=== PATIENT | female | born 1945 | race Caucasian/White ===

== ENCOUNTER → 2016-07-12 | Outpatient (CLI) | payer MEDICARE ==
--- NOTE | 2016-07-12 10:50 | US ---
EXAMINATION TYPE: US carotid duplex BILAT DATE OF EXAM: 07/12/2016 9:36 AM COMPARISON: NONE CLINICAL HISTORY: 70-year-old female R42 DIZZINESS. TECHNIQUE: Carotid duplex ultrasound examination. Indirect Doppler criteria is utilized. FINDINGS: Dxil-po-rozarnay atherosclerotic change of the right greater than left bifurcations. EXAM MEASUREMENTS: RIGHT: Peak Systolic Velocity (PSV) cm/sec ----- Right CCA: 73.8 ----- Right ICA: 122.1 ----- Right ECA: 75.4 ICA/CCA ratio: 1.7 RIGHT: End Diastole cm/sec ----- Right CCA: 22.3 ----- Right ICA: 49.4 ----- Right ECA: 11.7 LEFT: Peak Systolic Velocity (PSV) cm/sec ----- Left CCA: 66.8 ----- Left ICA: 83.1 ----- Left ECA: 58.8 ICA/CCA ratio: 1.2 LEFT: End Diastole cm/sec ----- Left CCA: 19.7 ----- Left ICA: 35.8 ----- Left ECA: 9.0 VERTEBRALS (direction of flow): Right Vertebral: Antegrade Left Vertebral: Antegrade IMPRESSION: Right ICA velocities are borderline elevated this could reflect a mild, approaching a moderate ICA st enosis. No hemodynamically significant ICA stenosis seen on either side. Criteria for Assigning % of Stenosis / Diameter reduction (Estimation based on the indirect measurements of the internal carotid artery velocities (ICA PSV). 1. Normal (no stenosis)=ICA PSV < 125 cm/s: ratio < 2.0: ICA EDV<40 cm/s. 2. Less than 50% stenosis=ICA PSV < 125 cm/s: ratio < 2.0: ICA EDV<40 cm/s. 3. 50 to 69% stenosis=ICA PSV of 125 to 230 cm/s: ration 2.0 ? 4.0: ICA EDV 40-100 cm/s. 4. Greater than 70% stenosis to near occlusion= ICA PSV > 230 cm/s: ratio > 4.0: ICA EDV > 100 cm/s. 5. Near occlusion= ICA PSV velocities may be low or undetectable: variable ratio and ICA EDV. 6. Total occlusion=unable to detect flow.
--- NOTE | 2016-07-14 07:46 | MM ---
Reason for exam: screening (asymptomatic). Last mammogram was performed 6 years and 1 month ago. History: Patient is postmenopausal. Physical Findings: A clinical breast exam by your physician is recommended on an annual basis and results should be correlated with mammographic findings. MG 3D Screening Mammo W/Cad Bilateral CC and MLO view(s) were taken. Prior study comparison: June 08, 2010, mammogram, performed at [facility]. May 26, 2010, mammogram, performed at [facility]. January 31, 2009, mammogram, performed at [facility]. There are scattered fibroglandular densities. There is no discrete abnormality. No significant changes when compared with prior studies. ASSESSMENT: Benign, BI-RAD 2 RECOMMENDATION: Routine screening mammogram of both breasts in 1 year.
== END | disposition home or self-care (01) ==
LOC: RADMAMWWP 08:56
PROVIDERS: ATTEND Family Medicine
DX: R42 Dizziness and giddiness (principal); Z12.31 Encounter for screening mammogram for malignant neoplasm of breast
CPT/HCPCS: 77063; 93880; G0202

== ENCOUNTER → 2020-04-10 | Outpatient (CLI) | payer MEDICARE ==
--- NOTE | 2020-04-11 10:12 | MM ---
Reason for exam: screening (asymptomatic). Last mammogram was performed 3 years and 9 months ago. History: Patient is postmenopausal. Physical Findings: A clinical breast exam by your physician is recommended on an annual basis and results should be correlated with mammographic findings. MG 3D Screening Mammo W/Cad Bilateral CC and MLO view(s) were taken. Prior study comparison: July 12, 2016, bilateral MG 3d screening mammo w/cad. June 08, 2010, mammogram, performed at [facility]. The breast tissue is heterogeneously dense. This may lower the sensitivity of mammography. There are benign appearing round grouped calcifications in the right breast. There is chronic nodularity in the right breast. Asymmetric breast tissue left upper quadrant, stable. There is no discrete abnormality. ASSESSMENT: Benign, BI-RAD 2 RECOMMENDATION: Routine screening mammogram of both breasts in 1 year.
== END | disposition home or self-care (01) ==
LOC: RADMAMWWP 08:15
PROVIDERS: ATTEND Family Medicine
DX: Z12.31 Encounter for screening mammogram for malignant neoplasm of breast (principal)
CPT/HCPCS: 77063; 77067

== ENCOUNTER → 2023-04-19 | Outpatient (CLI) | payer MEDICARE ==
--- NOTE | 2023-04-20 11:14 | MM ---
Reason for Exam: Screening (asymptomatic). Last mammogram was performed 3 year(s) and 0 month(s) ago. Patient History: Menarche at age 11. First Full-Term at age 19. Postmenopausal. Patient has history of breast feeding. Daughter had breast cancer at or over age 50. Risk Values: Ivana 5 year model risk: 3.6%. NCI Lifetime model risk: 6.7%. Prior Study Comparison: 06/08/2010 Screening Mammogram, [facility]. 07/12/2016 Bilateral Screening Mammogram, [facility]. 04/10/2020 Bilateral Screening Mammogram, [facility]. Tissue Density: There are scattered fibroglandular densities. Findings: Analyzed By CAD. There is no suspicious group of microcalcifications or new suspicious mass. Overall Assessment: Negative, BI-RAD 1 Management: Screening Mammogram of both breasts in [address] [facility] will attempt to contact patient to return for supplemental views and ultrasound if indicated. Patient should continue monthly self-breast exams. A clinical breast exam by your physician is recommended on an annual basis. This exam should not preclude additional follow-up of suspicious palpable abnormalities. Note on Ivana scores and lifetime risk: 1. A Ivana score greater than 3% is considered moderate risk. If this is the case, consider specialist referral to assess eligibility for a risk reducing agent. 2. If overall lifetime risk for the development of breast cancer is 20% or higher, the patient may qualify for future screening with alternating mammogram and breast MRI. Electronically signed and approved by: Pierre Talley DO
== END | disposition home or self-care (01) ==
LOC: RADMAMWWP 11:25
PROVIDERS: ATTEND Family Medicine
DX: Z12.31 Encounter for screening mammogram for malignant neoplasm of breast (principal); Z80.3 Family history of malignant neoplasm of breast; Z78.0 Asymptomatic menopausal state
CPT/HCPCS: 77063; 77067